=== PATIENT | male | born 1990 | race Caucasian/White ===

== ENCOUNTER 2024-09-21 19:50 | Emergency (ER) | payer OTHER ==
[~2024-09-21] VITALS: Ht 175.3 cm; Wt 77.1 kg
[2024-09-21 19:59] VITALS: BP 162/99
[2024-09-21] MEDS ORDERED: Fluorescein Sod 1MG Opth Strips RIGHTEYE ONE (20:20)
[2024-09-21] MEDS ORDERED: Tetracaine HCl/Pf 0.5% Opth Soln 4 ml RIGHTEYE ONE (20:25)
[2024-09-21] MEDS ORDERED: Erythromycin 0.5% Opth Oint 1 gm RIGHTEYE ONE (20:50)
== END 2024-09-21 21:00 | disposition home or self-care (01) ==
LOC: ER 19:50
DX: T15.01XA Foreign body in cornea, right eye, initial encounter (principal); Z88.4 Allergy status to anesthetic agent; Z88.8 Allergy status to other drugs, medicaments and biological substances; W44.E0XA Non-magnetic metal object unspecified, entering into or through a natural orifice, initial encounter
CPT/HCPCS: 99283; A9270